=== PATIENT | female | born 1980 | race Caucasian/White ===

== ENCOUNTER 2016-11-29 18:26 | Day surgery (SDC) | payer OTHER, MEDICARE ==
[2016-11-29] MEDS ORDERED: IV RINGERS,LACTATED 1000ML 1,000 ML IV SCH (18:37)
[2016-11-29] MEDS ORDERED: LIDOCAINE 1% 1 ML SYRINGE. ID PRN (18:45)
[2016-11-29] MEDS ORDERED: MORPHINE SULFATE 2 MG/ML DISP.SYRIN. IV PRN ×2 (18:45→20:00)
[2016-11-29] MEDS ORDERED: FENTANYL PF 100 MCG/2 ML VIAL. IV PRN ×3 (18:45→20:00)
[2016-11-29] MEDS ORDERED: ONDANSETRON PF 4 MG/2 ML VIAL. IV PRN (18:45)
[2016-11-29] MEDS ORDERED: PROCHLORPERAZINE 10 MG/2 ML VIAL. IV PRN (18:45)
[2016-11-29] MEDS ORDERED: OXYTOCIN 10 UNIT/ML VIAL. ONE ×2 (18:46→19:23)
[2016-11-29] MEDS ORDERED: MISOPROSTOL 200 MCG TABLET ONE (18:46)
[2016-11-29] MEDS ORDERED: MIDAZOLAM HCL/PF 2 MG/2 ML VIAL. ONE (18:56)
[2016-11-29] MEDS ORDERED: KETOROLAC 30 MG/ML INJ FOR OR. INJ ONE (18:56)
[2016-11-29] MEDS ORDERED: ONDANSETRON PF 4 MG/2 ML VIAL. ONE (18:56)
[2016-11-29] MEDS ORDERED: PROPOFOL 20 ML IV ONE (18:56)
--- NOTE | 2016-11-29 19:41 | PDOC ---
BRIEF OPERATIVE NOTE Pre-Op Diagnosis Incomplets AB Post-Op Diagnosis Same Procedure Performed Suction D and C Surgeon Rosa Elena Head Of Merchandise Buying None Anesthesia Type: General Blood Loss 50cc Specimens Obtained POC Complications None LAKESHIA MCCLOUD MD Nov 29, 2016 19:41
[2016-11-29] MEDS ORDERED: SEVOFLURANE 31 TO 60 MINUTES. IH ONE (19:43)
[2016-11-29] MEDS: FENTANYL PF 100 MCG/2 ML VIAL. IV PRN ×4 (19:45→20:30)
[2016-11-29] MEDS ORDERED: METH0.2T36 PO (19:46)
[2016-11-29] MEDS ORDERED: HYDR-971 PO (19:46)
[2016-11-29] MEDS ORDERED: DOXY-103 PO (19:46)
[2016-11-29] MEDS ORDERED: FENTANYL PF 100 MCG/2 ML VIAL. ONE (19:46)
[2016-11-29] MEDS ORDERED: NAPR375T3 PO (19:46)
[2016-11-29] MEDS: HYDROmorphone 2 MG/ML VIAL IV PRN ×2 (20:09→20:22)
[2016-11-29] MEDS ORDERED: HYDROCODONE/APAP 5/325MG TABLET. PO PRN (20:15)
[2016-11-29 20:45] VITALS: BP 116/69
--- NOTE | 2016-12-03 15:27 | PATHOLOGY ---
PATHOLOGY REPORT * * * * * * * * FINAL DIAGNOSIS: Uterine contents, suction D and C: - Products of conception, comprised of immature chorionic villi showing focal hydropic degenerative changes, and segments of decidual tissue showing focal necrosis, acute inflammation, and hemorrhage. (JPM:; d/t: 12/03/16) REPORT ELECTRONICALLY SIGNED BY: Tomas Romero M.D. DATE/TIME: 12/03/2016 15:26 * * * * * * * * GROSS PATHOLOGY: Received in formalin labeled "Zari Jurado, products of conception," is a 5.4 x 4.9 x 1.9 cm aggregate of abundant blood clot admixed with spongiform, pink-chapman tissue. tissue is not present. Vesicular structures are not grossly identified. Embossing Press Operator Apprentice tissue is submitted in cassette [id number]. (KAH; 11/30/2016) INITIAL CPT CODE(S): A; 28922 Professional services performed [place] [facility] [place] [address] Technical services performed by [facility] at [address] [place] [address]. SPECIMEN(S) RECEIVED: A.Products of conception CLINICAL HISTORY: demise PATIENT: ZARI JURADO /AGE: 905/05/1980 (Age: 36) PATIENT #: [id number] ALT CASE #: SPECIMEN COLLECTION DATE: 11/29/2016 SPECIMEN RECEIVED DATE: 11/30/2016 [facility] - [address] [place] [address] - PHONE: [phone] * * * END OF REPORT * * *
--- NOTE | 2016-12-06 14:24 | OP ---
DATE OF SURGERY: 12/03/2016 PREOPERATIVE DIAGNOSIS: Incomplete . POSTOPERATIVE DIAGNOSES: Incomplete . PROCEDURE: Suction D and C. SURGEON: Lakeshia Cuba MD. INTERIOR DESIGN INSTRUCTOR: None. ANESTHESIA: General. ESTIMATED BLOOD LOSS: 50 mL. FLUIDS: Crystalloid. SPECIMENS: Products of conception. COMPLICATIONS: None. CONDITION: Stable. DESCRIPTION OF PROCEDURE: Risks, benefits, indications, and alternatives were discussed in detail with the patient. The patient was brought to the OR theater, placed in a dorsolithotomy position in [facility]. After adequate general anesthesia, the patient was prepped and draped in the usual sterile manner. Posterior weighted speculum was placed in the vaginal vault. Cervix was grasped with single tooth tenaculum. Cervix was dilated up with Hegar dilators to receive a #8 curved suction cannula. The #8 curved suction cannula was placed through the cervical os. Gentle suction curettage was done gently in all quadrants. Products of conception were seen going through the clear tubing. Suction curette was removed. Sharp curettage was performed. The uterine cry was heard. Once again, this suction curette was placed through the cervical os. No further products of conception were seen going through clear tubing. The clear tubing was rinsed with normal saline. Vaginal vault was wiped free of any blood or debris. Single tooth tenaculum was removed. Puncture sites were hemostatic. Procedure was terminated. Sponge, needle, and instrument counts were correct x 2 per the nursing staff. The patient went to postop anesthesia recovery in stable condition. LAKESHIA CUBA MD DR: LOBO/marnie JOB#: [id number] / [id number]
--- NOTE | 2016-12-26 17:06 | OP ---
DATE OF SURGERY: 11/29/2016 PREOPERATIVE DIAGNOSIS: Incomplete . POSTOPERATIVE DIAGNOSES: Incomplete . PROCEDURE: Suction D and C. SURGEON: Lakeshia Cuba MD. TUFTING MACHINE FIXER: None. ANESTHESIA: General. ESTIMATED BLOOD LOSS: 50 mL. FLUIDS: Crystalloid. SPECIMENS: Products of conception. COMPLICATIONS: None. CONDITION: Stable. DESCRIPTION OF PROCEDURE: Risks, benefits, indications, and alternatives were discussed in detail with the patient. The patient was brought to the OR theater, placed in a dorsolithotomy position in [facility]. After adequate general anesthesia, the patient was prepped and draped in the usual sterile manner. Posterior weighted speculum was placed in the vaginal vault. Cervix was grasped with single tooth tenaculum. Cervix was dilated up with Hegar dilators to receive a #8 curved suction cannula. The #8 curved suction cannula was placed through the cervical os. Gentle suction curettage was done gently in all quadrants. Products of conception were seen going through the clear tubing. Suction curette was removed. Sharp curettage was performed. The uterine cry was heard. Once again, this suction curette was placed through the cervical os. No further products of conception were seen going through clear tubing. The clear tubing was rinsed with normal saline. Vaginal vault was wiped free of any blood or debris. Single tooth tenaculum was removed. Puncture sites were hemostatic. Procedure was terminated. Sponge, needle, and instrument counts were correct x 2 per the nursing staff. The patient went to postop anesthesia recovery in stable condition. LAKESHIA CUBA MD DR: LOBO/marnie JOB#: [id number] / [id number]
--- NOTE | 2016-12-28 15:33 | OP ---
DATE OF SURGERY: 11/29/2016 ADDENDUM ____ LAKESHIA MCCLOUD MD DR: Lee JOB#: [id number] / [id number]
--- NOTE | 2016-12-31 12:00 | OP ---
DATE OF SURGERY: 11/29/2016 ADDENDUM This was incorrectly dictated from the wrong date with correct dictation and correct patient. LAKESHIA MCCLOUD MD DR: LOBO/marnie JOB#: [id number] / [id number]
== END 2016-11-29 20:40 | disposition home or self-care (01) ==
LOC: SURG 18:26 → EDSTATUS 12-01 14:16
PROVIDERS: ATTEND Specialist
DX: O03.4 Incomplete spontaneous abortion without complication (principal)
CPT/HCPCS: 59812; 88305; J1170; J1885; J2250; J2590; J2704; J3010; J2405

== ENCOUNTER 2017-03-25 15:44 | Emergency (ER) | payer OTHER, MEDICARE ==
[~2017-03-25] VITALS: Ht 167.6 cm; Wt 72.6 kg
[~2017-03-25 15:44] MED LIST: DOXY100T10 PO; HYDR-971 PO; METH0.2T36 PO; NAPR375T3 PO
[2017-03-25] MEDS ORDERED: ONDANSETRON PF 4 MG/2 ML VIAL. IV ONE ×2 (16:15→18:45)
[2017-03-25] MEDS ORDERED: IV NORMAL SALINE 1000ML BAG 1,000 ML IV ONE (16:15)
[2017-03-25] MEDS ORDERED: KETOROLAC TROMETHAMINE 30 MG/ML INJ. IV ONE (16:15)
[2017-03-25 16:35] LABS: BASO % 0 % (0-3); EOS % 0 % (0-3); HEMATOCRIT 38.4 % (36.0-47.0); HEMOGLOBIN 12.9 g/dL (12.0-15.5); LYMPH # 1.2 x10^3/uL (1.0-4.8); LYMPH % 14 % (24-48); MEAN CORPUSCULAR HEMOGLOBIN 29 pg (25-35); MEAN CORPUSCULAR HGB CONC 34 g/dL (31-37); MEAN CORPUSCULAR VOLUME 87 fL (79-100); MONO % 3 % (0-9); NEUT % 82 % (31-73); PLATELET COUNT 271 x10^3/uL (140-400); RED CELL DISTRIBUTION WIDTH 13.5 % (11.5-14.5); WHITE BLOOD COUNT 8.6 x10^3/uL (4.0-11.0)
[2017-03-25 16:48] LABS: CREATININE 0.8 mg/dL (0.6-1.0); GFR 81.6; POTASSIUM 3.5 mmol/L (3.5-5.1)
[2017-03-25 16:53] VITALS: BP 120/69
[2017-03-25 16:54] LABS: ALBUMIN 4.1 g/dL (3.4-5.0); ALBUMIN/GLOBULIN RATIO 1.2 (1.0-1.7); TOTAL BILIRUBIN 0.4 mg/dL (0.2-1.0); TOTAL PROTEIN 7.6 g/dL (6.4-8.2)
--- NOTE | 2017-03-25 17:01 | RAD ---
COMPLETE ABDOMINAL ULTRASOUND Clinical History: upper abdominal pain vomiting Comparison: None. Technique: Sonographic examination of the abdomen was performed and multiple grayscale and duplex Doppler static images were obtained. Findings: The majority of the liver is visualized and appears homogeneous. The liver measures 16.2 cm. Portal flow is hepatopetal. The common bile duct is normal in caliber, measuring 3 mm in diameter. The gallbladder wall is not thickened. There is no cholelithiasis or pericholecystic fluid. The pancreas appears within normal limits. The right kidney is normal in morphology and echotexture and measures 1.8 x 4.2 x 4.1 cm. The left kidney is normal in morphology and echotexture and measures 1.7 x 4.6 x 5.9 cm. There is no hydronephrosis. The spleen is not enlarged, measuring 9.9 cm. Visualized portions of the abdominal aorta and IVC appear normal. IMPRESSION: There is no acute abdominal abnormality identified sonographically.
[2017-03-25 17:45] LABS: BILIRUBIN,URINE NEGATIVE (NEG); GLUCOSE,URINE NEGATIVE (NEG); NITRITE,URINE NEGATIVE (NEG); PH,URINE 8.5; PROTEIN,URINE 100 mg/dL (NEG-TRACE)
[2017-03-25 17:49] LABS: BACTERIA,URINE FEW /HPF (0-FEW); RBC,URINE 0 /HPF (0-2); SQUAMOUS EPITHELIAL CELL,UR FEW /LPF; WBC,URINE OCC /HPF (0-4)
[2017-03-25] MEDS ORDERED: RANI150T6 PO (18:28)
[2017-03-25] MEDS ORDERED: ONDA4TAB10 SL (18:28)
--- NOTE | 2017-03-25 18:28 | PHYS DOC ---
Past Medical History Past Medical History: No Pertinent History Additional Past Surgical Histo: BREAST REDUCTION, D&C Alcohol Use: None Drug Use: None Adult General Chief Complaint Chief Complaint: ABDOMINAL PAIN HPI HPI Patient is a 36 year old female who presents with abdominal pain & vomiting. Reports onset of symptoms this morning with upper abdominal pain, vomiting 5 times, not tolerating PO intake. Denies fevers/chills, hematemesis, diarrhea, constipation, hematochezia/melena, dysuria/hematuria, vaginal bleeding/ discharge. Denies previous history of similar symptoms, no known ill contacts. No relevant past medical history. Review of Systems Review of Systems Constitutional: Denies fever or chills HENT: Denies nasal congestion or sore throat Respiratory: Denies cough or shortness of breath Cardiovascular: Denies chest pain or edema GI: Reports abdominal pain, nausea, vomiting, denies bloody stools or diarrhea : Denies dysuria or hematuria Musculoskeletal: Denies back pain or joint pain Integument: Denies rash or skin lesions Neurologic: Denies headache, focal weakness or sensory changes Current Medications Current Medications Current Medications Medications (Trade) Dose Ordered Sig/Byron Start Time Stop Time Status Last Admin Dose Admin Ketorolac Tromethamine (Toradol) 30 mg 1X ONCE 03/25/17 16:15 03/25/17 16:16 DC 03/25/17 16:30 30 MG Ondansetron HCl (Zofran) 4 mg 1X ONCE 03/25/17 18:45 03/25/17 18:46 DC 03/25/17 18:42 4 MG Sodium Chloride 1,000 ml @ 1,000 mls/hr 1X ONCE 03/25/17 16:15 03/25/17 17:14 DC 03/25/17 16:29 1,000 MLS/HR Allergies Allergies Allergies Coded Allergies Type Severity Reaction Last Updated Verified No Known Drug Allergies 11/29/16 No Physical Exam Physical Exam Constitutional: Well developed, well nourished, no acute distress, non-toxic appearance. HENT: Normocephalic, atraumatic, bilateral external ears normal, oropharynx dry , nose normal. Eyes: conjunctiva normal, no discharge. Neck: supple, no stridor. Cardiovascular: RRR, no murmurs, no edema. Lungs & Thorax: LCTAB, no wheezing, no respiratory distress. Abdomen: soft, epigastric & RUQ tenderness without rebound/guarding, no masses or pulsatile masses, nondistended. Skin: Warm, dry, no erythema, no rash. Back: No CVA tenderness. Extremities: No tenderness, no edema. Neurologic: Alert and oriented X 3, no focal deficits noted. Psychologic: Affect normal, judgement normal, mood normal. Current Patient Data Vital Signs Vital Signs Date Time Temp Pulse Resp B/P (MAP) Pulse Ox O2 Delivery O2 Flow Rate FiO2 03/25/17 16:53 70 120/69 (86) 03/25/17 15:45 98.4 22 100 Room Air 98.4 Lab Values Laboratory Tests Test 03/25/17 16:26 03/25/17 17:35 White Blood Count 8.6 x10^3/uL (4.0-11.0) Red Blood Count 4.40 x10^6/uL (3.50-5.40) Hemoglobin 12.9 g/dL (12.0-15.5) Hematocrit 38.4 % (36.0-47.0) Mean Corpuscular Volume 87 fL (79-100) Mean Corpuscular Hemoglobin 29 pg (25-35) Mean Corpuscular Hemoglobin Concent 34 g/dL (31-37) Red Cell Distribution Width 13.5 % (11.5-14.5) Platelet Count 271 x10^3/uL (140-400) Neutrophils (%) (Auto) 82 % (31-73) H Lymphocytes (%) (Auto) 14 % (24-48) L Monocytes (%) (Auto) 3 % (0-9) Eosinophils (%) (Auto) 0 % (0-3) Basophils (%) (Auto) 0 % (0-3) Neutrophils # (Auto) 7.1 x10^3uL (1.8-7.7) Lymphocytes # (Auto) 1.2 x10^3/uL (1.0-4.8) Monocytes # (Auto) 0.3 x10^3/uL (0.0-1.1) Eosinophils # (Auto) 0.0 x10^3/uL (0.0-0.7) Basophils # (Auto) 0.0 x10^3/uL (0.0-0.2) Sodium Level 144 mmol/L (136-145) Potassium Level 3.5 mmol/L (3.5-5.1) Chloride Level 108 mmol/L (98-107) H Carbon Dioxide Level 23 mmol/L (21-32) Anion Gap 13 (6-14) Blood Urea Nitrogen 12 mg/dL (7-20) Creatinine 0.8 mg/dL (0.6-1.0) Estimated GFR (Cockcroft-Gault) 81.6 BUN/Creatinine Ratio 15 (6-20) Glucose Level 125 mg/dL (70-99) H Calcium Level 9.0 mg/dL (8.5-10.1) Total Bilirubin 0.4 mg/dL (0.2-1.0) Aspartate Amino Transferase (AST) 17 U/L (15-37) Alanine Aminotransferase (ALT) 21 U/L (14-59) Alkaline Phosphatase 49 U/L (46-116) Total Protein 7.6 g/dL (6.4-8.2) Albumin 4.1 g/dL (3.4-5.0) Albumin/Globulin Ratio 1.2 (1.0-1.7) Lipase 141 U/L (73-393) Urine Collection Type Unknown Urine Color Yellow Urine Clarity Cloudy Urine pH 8.5 Urine Specific [place] 1.025 Urine Protein 100 mg/dL (NEG-TRACE) Urine Glucose (UA) Negative mg/dL (NEG) Urine Ketones (Stick) 15 mg/dL (NEG) Urine Blood Negative (NEG) Urine Nitrite Negative (NEG) Urine Bilirubin Negative (NEG) Urine Urobilinogen Dipstick 1.0 mg/dL (0.2 mg/dL) Urine Leukocyte Esterase Negative (NEG) Urine RBC 0 /HPF (0-2) Urine WBC Occ /HPF (0-4) Urine Squamous Epithelial Cells Few /LPF Urine Amorphous Sediment Present /HPF Urine Bacteria Few /HPF (0-FEW) Urine Mucus Mod /LPF Laboratory Tests 03/25/17 16:26 Laboratory Tests 03/25/17 16:26 EKG EKG [] Radiology/Procedures Radiology/Procedures PROCEDURE: ABDOMEN COMPLETE COMPLETE ABDOMINAL ULTRASOUND Clinical History: upper abdominal pain vomiting Comparison: None. Technique: Sonographic examination of the abdomen was performed and multiple grayscale and duplex Doppler static images were obtained. Findings: The majority of the liver is visualized and appears homogeneous. The liver measures 16.2 cm. Portal flow is hepatopetal. The common bile duct is normal in caliber, measuring 3 mm in diameter. The gallbladder wall is not thickened. There is no cholelithiasis or pericholecystic fluid. The pancreas appears within normal limits. The right kidney is normal in morphology and echotexture and measures 1.8 x 4.2 x 4.1 cm. The left kidney is normal in morphology and echotexture and measures 1.7 x 4.6 x 5.9 cm. There is no hydronephrosis. The spleen is not enlarged, measuring 9.9 cm. Visualized portions of the abdominal aorta and IVC appear normal. IMPRESSION: There is no acute abdominal abnormality identified sonographically. DICTATED and SIGNED BY: DONG BENAVIDES MD DATE: 03/25/171655[] Course & Med Decision Making Course & Med Decision Making Pertinent Labs and Imaging studies reviewed. (See chart for details) []The patient presents with upper abdominal pain & vomiting. Well appearing with stable vitals, gave IV fluids, zofran, pain medication. Obtained labs, UA , US. No significant abnormality identified. She felt better after treatment & requested discharge home. Recommend rest, PO hydration with small sips of clear liquid, gave prescription for zofran for nausea, follow up wtih primary care if not improving in 2-3 days. Come back for high fever, severe pain, uncontrolled vomiting, any otherwise worsening condition. Discharged home in stable & improved condition. Dragon Disclaimer Dragon Disclaimer This electronic medical record was generated, in whole or in part, using a voice recognition dictation system. Departure Departure Impression: Primary Impression: Abdominal pain Disposition: 01 HOME, SELF-CARE Condition: STABLE Referrals: EMMANUEL BARNES MD (PCP) Patient Instructions: Gastritis, Adult, [id number], Nausea and Vomiting, Easy -to-Read Additional Instructions: You were seen in the emergency department today for abdominal pain & vomiting. Your labs & ultrasound were normal. This is likely virus with stomach irritation/acid reflux. Please rest, drink fluids to stay hydrated, take Zofran for nausea, use Zantac for abdominal pain. Follow-up with primary care physician in 2-3 days if not improving. Return to the emergency department for high fever, severe pain, uncontrolled vomiting, any otherwise worsening condition. Scripts Ondansetron (ZOFRAN ODT) 4 Mg Tab.rapdis 1 TAB SL Q8HRS, #10 TAB Prov: FREYA HAMILTON MD 03/25/17 Ranitidine Hcl (ZANTAC) 150 Mg Tablet 150 MG PO DAILY, #15 TAB Prov: FREYA HAMILTON MD 03/25/17 FREYA HAMILTON MD Mar 25, 2017 18:28
== END 2017-03-25 18:45 | disposition home or self-care (01) ==
LOC: ER 15:44
DX: R10.10 Upper abdominal pain, unspecified (principal); R10.13 Epigastric pain; R11.2 Nausea with vomiting, unspecified
CPT/HCPCS: 36415; 76700; 80053; 81001; 83690; 85027; 96361; 96374; 96375; 96376; 99285; J1885; J2405; J7030

== ENCOUNTER 2017-03-29 16:22 | Emergency (ER) | payer OTHER, MEDICARE ==
[~2017-03-29] VITALS: Ht 167.6 cm; Wt 72.6 kg
[~2017-03-29 16:22] MED LIST changes: +ONDA4TAB10 SL; +RANI150T6 PO
[2017-03-29] MEDS ORDERED: KETOROLAC TROMETHAMINE 30 MG/ML INJ. IV ONE (17:00)
[2017-03-29] MEDS ORDERED: FAMOTIDINE 20 MG/2 ML VIAL IVP ONE (17:00)
[2017-03-29] MEDS ORDERED: PROMETHAZINE 12.5 MG in IV NORMAL SALINE 50ML 50 ML IV ONE (17:00)
--- NOTE | 2017-03-29 17:08 | PHYS DOC ---
Past Medical History Past Medical History: Other Additional Past Medical Histor: ADHD, MOOD DISORDER Additional Past Surgical Histo: BREAST REDUCTION, D&C Alcohol Use: None Drug Use: Marijuana Adult General Chief Complaint Chief Complaint: ABDOMINAL PAIN HPI HPI Patient is a 36 year old female who presents with midepigastric abdominal pain moderate in nature in immediately for the last 5 days. Patient is also complaining of nausea with vomiting for 5 days. Denies any diarrhea. Denies any hematemesis. She states she was seen in the ED 2 days ago for the same complaint and was given acid reflex medications but her symptoms have not cleared. Patient denies any chance she is . Denies any significant medical history. Review of Systems Review of Systems Constitutional: Denies fever or chills [] Eyes: Denies change in visual acuity, redness, or eye pain [] HENT: Denies nasal congestion or sore throat [] Respiratory: Denies cough or shortness of breath [] Cardiovascular: No additional information not addressed in HPI [] GI: Midepigastric abdominal pain with nausea and vomiting : Denies dysuria or hematuria [] Musculoskeletal: Denies back pain or joint pain [] Integument: Denies rash or skin lesions [] Neurologic: Denies headache, focal weakness or sensory changes [] Endocrine: Denies polyuria or polydipsia [] Current Medications Current Medications Current Medications Medications (Trade) Dose Ordered Sig/Byron Start Time Stop Time Status Last Admin Dose Admin Famotidine (Pepcid) 20 mg 1X ONCE 03/29/17 17:00 03/29/17 17:01 DC 03/29/17 17:21 20 MG Fentanyl Citrate (Fentanyl 2ml Vial) 50 mcg 1X ONCE 03/29/17 20:00 03/29/17 20:01 DC 03/29/17 19:39 50 MCG Iohexol (Omnipaque 300 Mg/ml) 75 ml 1X ONCE 03/29/17 17:45 03/29/17 17:46 DC 03/29/17 18:11 75 ML Ketorolac Tromethamine (Toradol) 30 mg 1X ONCE 03/29/17 17:00 03/29/17 17:01 DC 03/29/17 17:21 30 MG Ondansetron HCl (Zofran) 4 mg 1X ONCE 03/29/17 20:00 03/29/17 20:01 DC 03/29/17 19:38 4 MG Promethazine HCl 12.5 mg/Sodium Chloride 50.5 ml @ 101 mls/hr 1X ONCE 03/29/17 17:00 03/29/17 17:29 DC 03/29/17 17:21 101 MLS/HR Allergies Allergies Allergies Coded Allergies Type Severity Reaction Last Updated Verified No Known Drug Allergies 11/29/16 No Physical Exam Physical Exam Constitutional: Well developed, well nourished, no acute distress, non-toxic appearance. [] HENT: Normocephalic, atraumatic, bilateral external ears normal, oropharynx moist, no oral exudates, nose normal. [] Eyes: PERRLA, EOMI, conjunctiva normal, no discharge. [] Neck: Normal range of motion, no tenderness, supple, no stridor. [] Cardiovascular:Heart rate regular rhythm, no murmur [] Lungs & Thorax: Bilateral breath sounds clear to auscultation [] Abdomen: Bowel sounds normal, soft, mild tenderness to the midepigastric abdomen , no right upper quadrant or right lower quadrant tenderness, no masses, no pulsatile masses. No guarding, no rebound pain or tenderness Skin: Warm, dry, no erythema, no rash. [] Back: No tenderness, no CVA tenderness. [] Extremities: No tenderness, no cyanosis, no clubbing, ROM intact, no edema. [] Neurologic: Alert and oriented X 3, normal motor function, normal sensory function, no focal deficits noted. [] Psychologic: Affect normal, judgement normal, mood normal. [] Current Patient Data Vital Signs Vital Signs Date Time Temp Pulse Resp B/P (MAP) Pulse Ox O2 Delivery O2 Flow Rate FiO2 03/29/17 20:20 54 20 106/67 (80) 99 Room Air 03/29/17 16:53 98.5 98.5 Lab Values Laboratory Tests Test 03/29/17 15:50 03/29/17 16:53 03/29/17 17:34 POC Urine HCG, Qualitative Hcg negative (Negative) White Blood Count 14.0 x10^3/uL (4.0-11.0) H Red Blood Count 4.28 x10^6/uL (3.50-5.40) Hemoglobin 12.6 g/dL (12.0-15.5) Hematocrit 37.4 % (36.0-47.0) Mean Corpuscular Volume 87 fL (79-100) Mean Corpuscular Hemoglobin 29 pg (25-35) Mean Corpuscular Hemoglobin Concent 34 g/dL (31-37) Red Cell Distribution Width 13.4 % (11.5-14.5) Platelet Count 271 x10^3/uL (140-400) Neutrophils (%) (Auto) 75 % (31-73) H Lymphocytes (%) (Auto) 16 % (24-48) L Monocytes (%) (Auto) 8 % (0-9) Eosinophils (%) (Auto) 0 % (0-3) Basophils (%) (Auto) 1 % (0-3) Neutrophils # (Auto) 10.6 x10^3uL (1.8-7.7) H Lymphocytes # (Auto) 2.2 x10^3/uL (1.0-4.8) Monocytes # (Auto) 1.1 x10^3/uL (0.0-1.1) Eosinophils # (Auto) 0.0 x10^3/uL (0.0-0.7) Basophils # (Auto) 0.1 x10^3/uL (0.0-0.2) Urine Collection Type Unknown Urine Color Yellow Urine Clarity Clear Urine pH 6.0 Urine Specific [place] >=1.030 Urine Protein Negative mg/dL (NEG-TRACE) Urine Glucose (UA) Negative mg/dL (NEG) Urine Ketones (Stick) Trace mg/dL (NEG) Urine Blood Negative (NEG) Urine Nitrite Negative (NEG) Urine Bilirubin Small (NEG) Urine Urobilinogen Dipstick 1.0 mg/dL (0.2 mg/dL) Urine Leukocyte Esterase Negative (NEG) Urine RBC 0 /HPF (0-2) Urine WBC 1-4 /HPF (0-4) Urine Squamous Epithelial Cells Mod /LPF Urine Bacteria Few /HPF (0-FEW) Urine Mucus Mod /LPF Urine Opiates Screen Neg (NEG) Urine Methadone Screen Neg (NEG) Urine Barbiturates Neg (NEG) Urine Phencyclidine Screen Neg (NEG) Urine Amphetamine/Methamphetamine Neg (NEG) Urine Benzodiazepines Screen Pos (NEG) Urine Cocaine Screen Neg (NEG) Urine Cannabinoids Screen Pos (NEG) Ethyl Alcohol Level < 10 mg/dL (0-10) Urine Ethyl Alcohol Neg (NEG) Sodium Level 142 mmol/L (136-145) Potassium Level 3.2 mmol/L (3.5-5.1) L Chloride Level 106 mmol/L (98-107) Carbon Dioxide Level 30 mmol/L (21-32) Anion Gap 6 (6-14) Blood Urea Nitrogen 11 mg/dL (7-20) Creatinine 0.8 mg/dL (0.6-1.0) Estimated GFR (Cockcroft-Gault) 81.6 BUN/Creatinine Ratio 14 (6-20) Glucose Level 124 mg/dL (70-99) H Calcium Level 8.1 mg/dL (8.5-10.1) L Total Bilirubin 0.3 mg/dL (0.2-1.0) Aspartate Amino Transferase (AST) 8 U/L (15-37) L Alanine Aminotransferase (ALT) 18 U/L (14-59) Alkaline Phosphatase 40 U/L (46-116) L Total Protein 6.5 g/dL (6.4-8.2) Albumin 3.5 g/dL (3.4-5.0) Albumin/Globulin Ratio 1.2 (1.0-1.7) Lipase 277 U/L (73-393) Laboratory Tests 03/29/17 16:53 Laboratory Tests 03/29/17 17:34 EKG EKG [] Radiology/Procedures Radiology/Procedures []PROCEDURE: CT ABD PELV W/ IV CONTRST ONLY EXAM: CT ABDOMEN/PELVIS WITH CONTRAST. HISTORY: Abdominal pain and nausea/vomiting. TECHNIQUE: Computed tomography of the abdomen and pelvis was performed after the intravenous administration of 75 mL Omnipaque 300. COMPARISON: None. FINDINGS: Lung windows through the visualized portions of the bases reveal a trace right pleural effusion. Bone windows reveal no suspicious lesions. There is a mild to moderate pectus expanded deformity with some mass effect on the right ventricular free wall. Cholelithiasis is suspected. The gallbladder is decompressed. The liver, spleen, adrenal glands, pancreas and kidneys are unremarkable. There are no pathologically enlarged lymph nodes. The appendix is not inflamed. A small amount of free pelvic fluid is likely physiologic. There is no obstruction. IMPRESSION: 1. Suspect cholelithiasis. Sonography could further evaluate. 2. Small free pelvic fluid is likely physiologic bilateral ovarian follicles. No acute intra-abdominal process is identified. 3. Trace right pleural effusion. 4. Mild to moderate pectus excavatum deformity with some mass effect on the right ventricular free wall. *One or more of the following individualized dose reduction techniques were utilized for this examination: 1. Automated exposure control. 2. Adjustment of the mA and/or kV according to patient size. 3. Use of iterative reconstruction technique. Electronically signed by: Delilah Mercado MD (03/29/2017 6:33 PM) [facility] DICTATED and SIGNED BY: LAKESHIA MERCADO MD DATE: 03/29/17 182 CC: EMMANUEL BARNES MD; VERNON SORENSON APRN ~ Course & Med Decision Making Course & Med Decision Making Pertinent Labs and Imaging studies reviewed. (See chart for details) This is a 36-year-old female patient who presents to the ED today with midepigastric abdominal pain with nausea and vomiting for 5 days. She was seen in the ED 2 days ago for the same complaint. Negative urine hCG. Urine analysis is negative for infection. CBC with a WBC of 14.0, CMP with no acute findings. CT of the abdomen and pelvic-radiologist suspected cholelithiasis, trace right pleural effusion patient, mild to moderate pectus excavatum deformity with some mass effect on the right ventricular free wall. Patient was given 1 L of IV fluid promethazine and Zofran in the ED. She was also given Toradol and fentanyl. She states her pain has been relieved. She is in the ED drinking Sprite with no difficulties. She was instructed to follow-up with the general surgeon or PCP for outpatient ultrasound. She was instructed to follow-up with a continuity director which we provided for mild to moderate pectus excavatum deformity with some mass effect on the right ventricular free wall. She has no cardiac symptoms. She has a PCP and has been following up. She states nobody is ever mentioned this condition to her. She was provided return precautions and discharged in stable condition. Dragon Disclaimer Dragon Disclaimer This electronic medical record was generated, in whole or in part, using a voice recognition dictation system. Departure Departure Impression: Primary Impression: Epigastric abdominal pain Additional Impressions: Cholelithiasis Pectus excavatum Disposition: HOME, SELF-CARE Condition: STABLE Referrals: EMMANUEL BARNES MD (PCP) ARTI DAVIS MD call his office on Saturday and set up a follow appointment. Patient Instructions: Cholelithiasis, [id number] Additional Instructions: You were seen for gallbladder disease. Please follow-up with the provided general surgeon by calling his office on Saturday to set up a follow-up appointment. Come back to the ED if symptoms worsen. Scripts Omeprazole (OMEPRAZOLE) 20 Mg Tablet.dr 1 TAB PO DAILY, #30 TAB 1 Refill Prov: VERNON SORENSON APRN 03/29/17 Prochlorperazine Maleate (Compazine) 10 Mg Tablet 10 MG PO Q8HRS, #30 TAB Prov: VERNON SORENSON APRN 03/29/17 Ondansetron (ZOFRAN ODT) 4 Mg Tab.rapdis 1 TAB SL Q8HRS, #15 TAB Prov: VERNON SORENSON APRN 03/29/17 Promethazine Hcl (PROMETHAZINE HCL) 25 Mg Tablet 1 TAB PO PRN Q6HRS, #20 TAB Prov: VERNON SORENSON APRN 03/29/17 Hydrocodone/Apap 5-325 (NORCO 5-325 TABLET) 1 Each Tablet 1-2 TAB PO Q4-6HRS, #20 TAB Prov: VERNON SORENSON APRN 03/29/17 Problem Qualifiers Additional Impressions: Cholelithiasis Cholelithiasis location: gallbladder Cholecystitis presence: with cholecystitis Cholecystitis acuity: acute Biliary obstruction: without biliary obstruction Qualified Codes: K80.00 - Calculus of gallbladder with acute cholecystitis without obstruction VERNON SORENSON APRN Mar 29, 2017 17:07
[2017-03-29 17:20] LABS: BASO # 0.1 x10^3/uL (0.0-0.2); BASO % 1 % (0-3); EOS % 0 % (0-3); HEMATOCRIT 37.4 % (36.0-47.0); HEMOGLOBIN 12.6 g/dL (12.0-15.5); LYMPH # 2.2 x10^3/uL (1.0-4.8); LYMPH % 16 % (24-48); MEAN CORPUSCULAR HEMOGLOBIN 29 pg (25-35); MEAN CORPUSCULAR HGB CONC 34 g/dL (31-37); MEAN CORPUSCULAR VOLUME 87 fL (79-100); MONO % 8 % (0-9); NEUT % 75 % (31-73); PLATELET COUNT 271 x10^3/uL (140-400); RED BLOOD COUNT 4.28 x10^6/uL (3.50-5.40); RED CELL DISTRIBUTION WIDTH 13.4 % (11.5-14.5)
[2017-03-29 17:22] LABS: BILIRUBIN,URINE SMALL (NEG); GLUCOSE,URINE NEGATIVE (NEG); NITRITE,URINE NEGATIVE (NEG); PROTEIN,URINE NEGATIVE (NEG-TRACE)
[2017-03-29 17:28] LABS: BARBITURATES NEG (NEG); BENZODIAZEPINES POS (NEG); CANNABINOIDS POS (NEG); COCAINE NEG (NEG); METHADONE NEG (NEG); OPIATES NEG (NEG); PHENCYCLIDINE NEG (NEG)
[2017-03-29 17:36] LABS: BACTERIA,URINE FEW /HPF (0-FEW); RBC,URINE 0 /HPF (0-2); SQUAMOUS EPITHELIAL CELL,UR MOD /LPF
[2017-03-29] MEDS ORDERED: IOHEXOL 300 MG/ML 75 ML VIAL IV ONE (17:45)
[2017-03-29 17:56] LABS: CALCIUM 8.1 mg/dL (8.5-10.1); CREATININE 0.8 mg/dL (0.6-1.0); GFR 81.6; POTASSIUM 3.2 mmol/L (3.5-5.1)
[2017-03-29 18:03] LABS: ALBUMIN 3.5 g/dL (3.4-5.0); ALBUMIN/GLOBULIN RATIO 1.2 (1.0-1.7); TOTAL BILIRUBIN 0.3 mg/dL (0.2-1.0); TOTAL PROTEIN 6.5 g/dL (6.4-8.2)
--- NOTE | 2017-03-29 18:36 | RAD ---
EXAM: CT ABDOMEN/PELVIS WITH CONTRAST. HISTORY: Abdominal pain and nausea/vomiting. TECHNIQUE: Computed tomography of the abdomen and pelvis was performed after the intravenous administration of 75 mL Omnipaque 300. COMPARISON: None. FINDINGS: Lung windows through the visualized portions of the bases reveal a trace right pleural effusion. Bone windows reveal no suspicious lesions. There is a mild to moderate pectus expanded deformity with some mass effect on the right ventricular free wall. Cholelithiasis is suspected. The gallbladder is decompressed. The liver, spleen, adrenal glands, pancreas and kidneys are unremarkable. There are no pathologically enlarged lymph nodes. The appendix is not inflamed. A small amount of free pelvic fluid is likely physiologic. There is no obstruction. IMPRESSION: 1. Suspect cholelithiasis. Sonography could further evaluate. 2. Small free pelvic fluid is likely physiologic bilateral ovarian follicles. No acute intra-abdominal process is identified. 3. Trace right pleural effusion. 4. Mild to moderate pectus excavatum deformity with some mass effect on the right ventricular free wall. *One or more of the following individualized dose reduction techniques were utilized for this examination: 1. Automated exposure control. 2. Adjustment of the mA and/or kV according to patient size. 3. Use of iterative reconstruction technique. Electronically signed by: Delilah Mercado MD (03/29/2017 6:33 PM) [facility]
[2017-03-29] MEDS ORDERED: fentaNYL PF VIAL 100 MCG/2 ML VIAL IV ONE (20:00)
[2017-03-29] MEDS ORDERED: ONDANSETRON PF 4 MG/2 ML VIAL. IV ONE (20:00)
[2017-03-29] MEDS ORDERED: HYDR-971 PO (20:19)
[2017-03-29] MEDS ORDERED: PROC10TA57 PO (20:19)
[2017-03-29] MEDS ORDERED: ONDA4TAB10 SL (20:19)
[2017-03-29] MEDS ORDERED: OMEP20TA8 PO (20:19)
[2017-03-29] MEDS ORDERED: PROM25TA10 PO (20:19)
[2017-03-29 20:20] VITALS: BP 106/67
== END 2017-03-29 20:34 | disposition home or self-care (01) ==
LOC: ER 16:22
DX: K80.20 Calculus of gallbladder without cholecystitis without obstruction (principal); Q67.6 Pectus excavatum
CPT/HCPCS: 36415; 74177; 80053; 80307; 81001; 81025; 83690; 85027; 96365; 96374; 96375; 99285; G0480; J1885; J2405; J2550; J3010; Q9967; S0028; G0479